=== PATIENT | male | born 2000 | race Caucasian/White ===

== ENCOUNTER 2023-12-10 08:24 | Outpatient (AMB) | payer OTHER, SELFPAY ==
--- NOTE | 2023-12-10 08:50 | AM.OFFWIN_ITS ---
Intake Vital Signs 12/10/23 08:52 Height 5 ft 9 in Weight 155 lb BMI 22.9 BP 128/80 Blood Pressure Location Rt brachial Position Sitting Pulse 104 H Pulse Source Pulse Oximeter Temp 98.7 F Temp Source Oral Pulse Oximetry (%) 97 Oxygen Delivery Method Room Air Intake Visit Reasons: [employer] Congestion, Headache, Sore throat [phone] Intake Note: Pt presents to the office today for congestion,headache and sore throat that started yesterday and is worse today. Allergies No Known Allergies Allergy (Verified 12/10/23 09:19) Medication List - Last Reconciled 12/10/23 by JEREL Dimas benzocaine-menthol 15-2.6 mg (Cepacol Sore Throat (benzocaine-menthol)) 1 liliya mucous membrane Q2-4H PRN prednisone 20 mg PO BID HPI HPI Comments History of Present Illness Details Patient is a 23-year-old male in today for a sick visit. Patient has no significant past medical history. Patient is not currently taking any medications. Here at the appointment today with upper respiratory symptoms including cough, sore throat, headache, chills. Patient states that symptoms started 1 day prior to the appointment. [place]. Denies chest pain, shortness a breath, dizziness, numbness, nausea, vomiting, diarrhea. Patient tried [id number] medication with little relief. [facility] Social History Alcohol intake: never Patient Tobacco Use Status: Never used Tobacco Review of Systems Const All systems reviewed & are unremarkable except as noted in HPI and below Physical Exam Vital Signs: Last Vital Signs Temp 98.7 F 12/10/23 08:52 Pulse 104 H 12/10/23 08:52 BP 128/80 12/10/23 08:52 Pulse Ox 97 12/10/23 08:52 Oxygen Delivery Method Room Air 12/10/23 08:52 BMI result Body Mass Index 22.9 Const Other: Appearance: Alert.? Oriented X3.? No acute distress.? Head: Normocephalic, atraumatic, Eyes: Pupils equal, round and reactive to light.? ENT: Pharynx erythema. TM intact and pearly burns. Neck: Normal inspection.? Neck supple.? Full ROM. CVS: Normal heart rate and rhythm.? Pulses normal.? Respiratory: No respiratory distress.? Breath sounds normal.? Neuro: Oriented X 3.? No motor deficit.? No sensory deficit. CN 2-12 intact Results AMB Rapid Strep AMB Rapid Strep Negative Last Edit by Denisha Gaston MA on 12/10/23 09:02 Results Reviewed Results Reviewed: Laboratory Last Values Strep Scn [facility] Negative 12/10/23 08:59 Assessment & Plan Assessment & Plan (1) Upper respiratory infection: Comment: Will give patient prednisone and chemical. Patient also educated this likely virus. Can also utilize [id number] medication, and rest. Code(s): J06.9 - Acute upper respiratory infection, unspecified Qualifiers: URI type: unspecified URI Qualified Code(s): J06.9 - Acute upper respiratory infection, unspecified Plan: Take your medications as prescribed. If you were prescribed antibiotics today, it is important that you take your medication to their entirety, do not skip any doses, do not finish them early. Follow-up with your primary care provider this week. Return to the emergency department with new or worsening symptoms. Such as fevers, chills, chest pain, shortness of breath, nausea, vomiting, dizziness, headache, vision changes, lethargy In case of emergency call 911 Plan Follow-up with PCP. Orders: Orders AMB Rapid Strep Screen Today Z13.9 - Encounter for screening, unspecified Dano Sun MD SARS-CoV2/FLU/RSV Today J06.9 - Acute upper respiratory infection, unspecified JEREL Dimas Medications: New prednisone 20 mg PO BID 10 tabs 0RF JEREL Dimas benzocaine-menthol 15-2.6 mg (Cepacol Sore Throat (benzocaine-menthol)) 1 liliya mucous membrane Q2-4H PRN 16 ea 0RF pain JEREL Dimas Coding Level of Care Code Est Pt Level 3 (75763) Diagnoses Upper respiratory tract infection, unspecified type J06.9 URI type: unspecified URI Time Spent (min) 21
[2023-12-10 08:52] VITALS: BP 128/80; PULSE 104; TEMP 37.1; O2SAT 97; BMI 22.9
== END 2023-12-10 10:15 | disposition home or self-care (01) ==
PROVIDERS: PCP Internal Medicine; Visit Provider Nurse Practitioner Primary Care
DX: J06.9 Acute upper respiratory infection, unspecified (principal)
CPT/HCPCS: 87880; 99213

== ENCOUNTER 2023-12-10 11:40 | Outpatient (REF) | payer OTHER, SELFPAY ==
[2023-12-10 12:43] LABS: Influenza A PCR NEGATIVE (Negative); Influenza B PCR NEGATIVE (Negative); Resp Syncy Virus RNA Qual PCR NEGATIVE (Negative); SARS COV2 PCR INHOUSE NEGATIVE (Negative)
== END 2023-12-10 11:41 | disposition home or self-care (01) ==
LOC: HO.HMGCLNP 11:40
PROVIDERS: Visit Provider Nurse Practitioner Primary Care
DX: Z11.52 Encounter for screening for COVID-19 (principal); J06.9 Acute upper respiratory infection, unspecified
CPT/HCPCS: 0241U